=== PATIENT | female | born 1985 | race Caucasian/White ===

== ENCOUNTER → 2020-02-19 | Outpatient (CLI) | payer OTHER ==
[2020-02-19 17:59] LABS: BASO # 0.1 10^3/uL (0.0-0.2); BASO % 1.2 % (0.0-1.0); EOS # 0.3 10^3/uL (0.0-0.5); EOS % 4.4 % (0.0-3.0); HEMOGLOBIN 12.7 g/dl (12.0-15.5); LYMPH # 2.2 10^3/uL (1.5-5.0); LYMPH % 30.6 % (24.0-44.0); MEAN CORPUSCULAR HEMOGLOBIN 30.3 pg (27.0-33.0); MEAN CORPUSCULAR HGB CONC 32.6 g/dl (32.0-36.5); MEAN CORPUSCULAR VOLUME 93.1 fl (80.0-96.0); MONO # 0.4 10^3/uL (0.0-0.8); MONO % 5.9 % (0.0-5.0); NEUTROPHILS # 4.2 10^3/uL (1.5-8.5); NEUTROPHILS % 57.5 % (36.0-66.0); PLATELET COUNT, AUTOMATED 311 10^3/uL (150-450); RED BLOOD COUNT 4.19 10^6/uL (4.00-5.40); WHITE BLOOD COUNT 7.3 10^3/uL (4.0-10.0)
[2020-02-19 18:12] LABS: APPEARANCE, URINE CLEAR (CLEAR); BACTERIA, URINE AUTO NEGATIVE (NEGATIVE); BILIRUBIN, URINE AUTO NEGATIVE (NEGATIVE); BLOOD, URINE BLOOD NEGATIVE (NEGATIVE); COLOR, URINE COLORLESS (YELLOW); GLUCOSE, URINE (UA) AUTO NEGATIVE (NEGATIVE); KETONE, URINE AUTO NEGATIVE (NEGATIVE); LEUKOCYTE ESTERASE, URINE AUTO NEGATIVE (NEGATIVE); NITRITE, URINE AUTO NEGATIVE (NEGATIVE); PROTEIN, URINE AUTO NEGATIVE (NEGATIVE); RBC, URINE AUTO 1 /HPF (0-3); SPECIFIC GRAVITY URINE AUTO 1.001 (1.002-1.035); SQUAMOUS EPITHELIAL CELL UR AU 0 /HPF (0-6); UROBILINOGEN, URINE AUTO 0.2 mg/dL (0.0-2.0); WBC, URINE AUTO 0 /HPF (0-3)
[2020-02-19 18:29] LABS: BLOOD UREA NITROGEN 12 MG/DL (7-18); CALCIUM LEVEL 8.8 MG/DL (8.5-10.1); CARBON DIOXIDE LEVEL 27 MEQ/L (21-32); CHLORIDE LEVEL 107 MEQ/L (98-107); CREATININE FOR GFR 0.82 MG/DL (0.55-1.30); GLOMERULAR FILTRATION RATE > 60.0 (>60); GLUCOSE, FASTING 62 MG/DL (70-100); POTASSIUM SERUM 4.3 MEQ/L (3.5-5.1); SODIUM LEVEL 140 MEQ/L (136-145)
[2020-02-19 18:30] LABS: HEMOGLOBIN A1c 5.4 %
[2020-02-19 18:47] LABS: CREATININE, URINE < 13.0 MG/DL; CREATININE,RANDOM URINE < 13.0 MG/DL; MALB URINE SIEMENS < 5.0 MG/L; TOTAL PROTEIN,RANDOM URINE < 5.0 MG/DL (0.0-12.0)
== END ==
LOC: M LAB 16:24
PROVIDERS: ATTEND Internal Medicine Nephrology
DX: Z00.5 Encounter for examination of potential donor of organ and tissue (principal)

== ENCOUNTER → 2020-03-18 | Outpatient (REF) | payer OTHER | LOC: M SFHCLUC 15:52 | PROVIDERS: ATTEND Nurse Practitioner Family | DX: Z11.59 Encounter for screening for other viral diseases (principal) | CPT/HCPCS: 87081; U0003 ==

== ENCOUNTER → 2021-05-19 | Outpatient (CLI) | payer OTHER | LOC: M OUTALCOH 07:49 | PROVIDERS: ATTEND Psychiatry & Neurology Psychiatry | DX: Z03.89 Encounter for observation for other suspected diseases and conditions ruled out (principal) ==

== ENCOUNTER → 2021-10-04 | Outpatient (CLI) | payer OTHER ==
[2021-10-05 13:15] LABS: ESTRADIOL 573.8 PG/ML; PROGESTERONE 55.43 NG/ML
== END ==
LOC: M WUC 08:49
PROVIDERS: ATTEND Obstetrics & Gynecology Reproductive Endocrinology
DX: Z31.49 Encounter for other procreative investigation and testing (principal)

== ENCOUNTER → 2021-10-08 | Outpatient (CLI) | payer OTHER ==
[2021-10-08 12:21] LABS: PROGESTERONE 74.61 NG/ML
== END ==
LOC: M WUC 08:07
PROVIDERS: ATTEND Obstetrics & Gynecology Reproductive Endocrinology
DX: Z32.00 Encounter for pregnancy test, result unknown (principal)

== ENCOUNTER → 2021-10-11 | Outpatient (CLI) | payer OTHER ==
[2021-10-11 11:13] LABS: THYROID STIMULATING HORMONE 1.57 uIU/ML (0.358-3.740)
[2021-10-11 11:20] LABS: ESTRADIOL 1223.8 PG/ML
[2021-10-11 11:40] LABS: PROGESTERONE 109.89 NG/ML
== END ==
LOC: M WUC 08:31
PROVIDERS: ATTEND Obstetrics & Gynecology Reproductive Endocrinology
DX: Z32.01 Encounter for pregnancy test, result positive (principal)

== ENCOUNTER 2021-12-03 22:28 | Emergency (ER) | payer OTHER ==
[~2021-12-03] VITALS: Ht 157.5 cm; Wt 78.0 kg
[2021-12-04 00:14] LABS: BLOOD UREA NITROGEN 9 MG/DL (7-18); CALCIUM LEVEL 8.1 MG/DL (8.5-10.1); CARBON DIOXIDE LEVEL 22 MEQ/L (21-32); CHLORIDE LEVEL 109 MEQ/L (98-107); CREATININE FOR GFR 0.55 MG/DL (0.55-1.30); GLOMERULAR FILTRATION RATE > 60.0 (>60); GLUCOSE, FASTING 161 MG/DL (70-100); HCG, SERUM QUANTITATIVE 41862 MIU/ML; POTASSIUM SERUM 3.6 MEQ/L (3.5-5.1); SODIUM LEVEL 139 MEQ/L (136-145)
[2021-12-04 00:19] LABS: BASO # 0.1 10^3/uL (0.0-0.2); BASO % 0.5 % (0.0-1.0); EOS # 0.3 10^3/uL (0.0-0.5); EOS % 2.7 % (0.0-3.0); HEMATOCRIT 31.1 % (36.0-47.0); HEMOGLOBIN 10.4 g/dl (12.0-15.5); LYMPH # 1.6 10^3/uL (1.5-5.0); LYMPH % 17.1 % (24.0-44.0); MEAN CORPUSCULAR HEMOGLOBIN 30.5 pg (27.0-33.0); MEAN CORPUSCULAR HGB CONC 33.4 g/dl (32.0-36.5); MEAN CORPUSCULAR VOLUME 91.2 fl (80.0-96.0); MONO # 0.5 10^3/uL (0.0-0.8); MONO % 5.8 % (2.0-8.0); NEUTROPHILS # 6.7 10^3/uL (1.5-8.5); NEUTROPHILS % 73.5 % (36.0-66.0); PLATELET COUNT, AUTOMATED 238 10^3/uL (150-450); RED BLOOD COUNT 3.41 10^6/uL (4.00-5.40); WHITE BLOOD COUNT 9.1 10^3/uL (4.0-10.0)
[2021-12-04 01:15] VITALS: BP 115/61
== END 2021-12-04 01:38 | disposition home or self-care (01) ==
LOC: M ED 22:28 → EDBD 22:28 → M ED 12-04 01:38
DX: O20.8 Other hemorrhage in early pregnancy (principal); Z3A.12 12 weeks gestation of pregnancy

== ENCOUNTER → 2021-12-09 | Outpatient (REF) | payer OTHER ==
[2021-12-09 17:27] LABS: HEMOGLOBIN 10.1 g/dl (12.0-15.5); MEAN CORPUSCULAR HEMOGLOBIN 29.8 pg (27.0-33.0); MEAN CORPUSCULAR HGB CONC 32.6 g/dl (32.0-36.5); MEAN CORPUSCULAR VOLUME 91.4 fl (80.0-96.0); PLATELET COUNT, AUTOMATED 302 10^3/uL (150-450); RED BLOOD COUNT 3.39 10^6/uL (4.00-5.40); WHITE BLOOD COUNT 9.8 10^3/uL (4.0-10.0)
[2021-12-09 18:33] LABS: HCG, SERUM QUANTITATIVE 56303 MIU/ML; HEPATITIS B SURFACE ANTIGEN NEGATIVE (NEGATIVE); HEPATITIS C VIRUS ABY INDEX 0.1 INDEX (<0.8); HIV 1&2 SCREEN CENTAUR NEGATIVE (NEGATIVE)
== END ==
LOC: M LAB REF 16:26
PROVIDERS: ATTEND Obstetrics & Gynecology
DX: O36.80X0 Pregnancy with inconclusive fetal viability, not applicable or unspecified (principal); Z32.01 Encounter for pregnancy test, result positive

== ENCOUNTER → 2022-02-21 | Outpatient (CLI) | payer OTHER | LOC: M WUC 13:15 | PROVIDERS: ATTEND Obstetrics & Gynecology Reproductive Endocrinology | DX: N96 Recurrent pregnancy loss (principal) ==

== ENCOUNTER → 2022-04-29 | Outpatient (CLI) | payer OTHER ==
[2022-04-29 14:09] LABS: PROGESTERONE 78.22 NG/ML
== END ==
LOC: M WUC 08:13
PROVIDERS: ATTEND Obstetrics & Gynecology Reproductive Endocrinology
DX: Z32.00 Encounter for pregnancy test, result unknown (principal)

== ENCOUNTER → 2022-05-02 | Outpatient (CLI) | payer OTHER | LOC: M WUC 08:10 | PROVIDERS: ATTEND Obstetrics & Gynecology Reproductive Endocrinology | DX: N88.8 Other specified noninflammatory disorders of cervix uteri (principal) ==

== ENCOUNTER → 2022-07-05 | Outpatient (CLI) | payer OTHER | LOC: M WHC 12:47 | PROVIDERS: ATTEND Advanced Practice Midwife | DX: O20.0 Threatened abortion (principal) ==

== ENCOUNTER → 2022-07-11 | Outpatient (CLI) | payer OTHER ==
[2022-07-11 16:41] LABS: MEAN CORPUSCULAR HEMOGLOBIN 28.8 pg (27.0-33.0); MEAN CORPUSCULAR HGB CONC 32.4 g/dl (32.0-36.5); PLATELET COUNT, AUTOMATED 253 10^3/uL (150-450); RED BLOOD COUNT 3.82 10^6/uL (4.00-5.40); WHITE BLOOD COUNT 12.1 10^3/uL (4.0-10.0)
[2022-07-11 17:14] LABS: HIV 1&2 SCREEN CENTAUR NEGATIVE (NEGATIVE)
[2022-07-11 17:22] LABS: HEPATITIS C VIRUS ABY INDEX 0.1 INDEX (<0.8)
[2022-07-11 18:34] LABS: GC DNA AMPLIFICATION NEGATIVE (NEGATIVE)
== END ==
LOC: M WUC 13:04
PROVIDERS: ATTEND Specialist
DX: Z34.81 Encounter for supervision of other normal pregnancy, first trimester (principal)

== ENCOUNTER → 2022-08-12 | Outpatient (CLI) | payer OTHER | LOC: M WHC 08:33 | PROVIDERS: ATTEND Advanced Practice Midwife | DX: O30.049 Twin pregnancy, dichorionic/diamniotic, unspecified trimester (principal); Z36.2 Encounter for other antenatal screening follow-up; Z3A.19 19 weeks gestation of pregnancy ==

== ENCOUNTER → 2022-09-23 | Outpatient (CLI) | payer OTHER ==
[2022-09-23 08:18] LABS: HEMATOCRIT 34.8 % (36.0-47.0); HEMOGLOBIN 11.2 g/dl (12.0-15.5); MEAN CORPUSCULAR HEMOGLOBIN 30.1 pg (27.0-33.0); MEAN CORPUSCULAR HGB CONC 32.2 g/dl (32.0-36.5); MEAN CORPUSCULAR VOLUME 93.5 fl (80.0-96.0); PLATELET COUNT, AUTOMATED 214 10^3/uL (150-450); RED BLOOD COUNT 3.72 10^6/uL (4.00-5.40); WHITE BLOOD COUNT 8.9 10^3/uL (4.0-10.0)
== END ==
LOC: M LAB 06:44
PROVIDERS: ATTEND Advanced Practice Midwife
DX: O30.042 Twin pregnancy, dichorionic/diamniotic, second trimester (principal); Z3A.00 Weeks of gestation of pregnancy not specified

== ENCOUNTER → 2022-10-07 | Outpatient (CLI) | payer OTHER | LOC: M WHC 14:54 | PROVIDERS: ATTEND Advanced Practice Midwife | DX: O30.042 Twin pregnancy, dichorionic/diamniotic, second trimester (principal) ==

== ENCOUNTER → 2022-10-18 | Outpatient (CLI) | payer OTHER | LOC: M LAB 09:31 | PROVIDERS: ATTEND Advanced Practice Midwife | DX: O99.810 Abnormal glucose complicating pregnancy (principal) ==

== ENCOUNTER → 2022-10-31 | Outpatient (CLI) | payer OTHER | LOC: M WHC 10:11 | PROVIDERS: ATTEND Specialist | DX: O30.043 Twin pregnancy, dichorionic/diamniotic, third trimester (principal) ==

== ENCOUNTER 2022-11-03 12:41 | Outpatient (CLI) | payer OTHER ==
[~2022-11-03] VITALS: Ht 160 cm; Wt 95.9 kg
[2022-11-03 13:07] VITALS: BP 127/66
[2022-11-03] MEDS ORDERED: ACET325C5 PO (13:19)
[2022-11-03] MEDS ORDERED: HOME MED LIST COMPLETE! XX SCH (13:20)
[2022-11-03] MEDS ORDERED: BETAMETHASONE SOLUSPAN 6MG/ML 5ML VIAL IM ONE (13:30)
[2022-11-03 14:01] VITALS: BP 139/74
[2022-11-04] MEDS ORDERED: PRENTAB9 PO (14:12)
[2022-11-04] MEDS ORDERED: OMEP-173 PO (14:12)
[2022-11-04] MEDS ORDERED: SALI0.6530 NARES (14:12)
== END 2022-11-03 14:06 | disposition home or self-care (01) ==
LOC: M LDO 12:41
PROVIDERS: ATTEND Obstetrics & Gynecology
DX: O40.3XX2 Polyhydramnios, third trimester, fetus 2 (principal); O30.043 Twin pregnancy, dichorionic/diamniotic, third trimester; O34.211 Maternal care for low transverse scar from previous cesarean delivery; Z3A.30 30 weeks gestation of pregnancy
CPT/HCPCS: 59025; 96372; G0463; J0702

== ENCOUNTER 2022-11-04 13:43 | Outpatient (CLI) | payer OTHER ==
[~2022-11-04] VITALS: Ht 157.5 cm; Wt 95.7 kg
[~2022-11-04 13:43] MED LIST: ACET325C5 PO
[2022-11-04] MEDS ORDERED: PRENTAB9 PO (14:12)
[2022-11-04] MEDS ORDERED: SALI0.6530 NARES (14:12)
[2022-11-04] MEDS ORDERED: OMEP-173 PO (14:12)
[2022-11-04 14:15] VITALS: BP 136/68
[2022-11-04] MEDS ORDERED: HOME MED LIST COMPLETE! XX SCH (14:15)
[2022-11-04] MEDS ORDERED: BETAMETHASONE SOLUSPAN 6MG/ML 5ML VIAL IM ONE (14:20)
== END 2022-11-04 14:50 | disposition home or self-care (01) ==
LOC: M LDO 13:43
PROVIDERS: ATTEND Advanced Practice Midwife
DX: O40.3XX2 Polyhydramnios, third trimester, fetus 2 (principal); O30.043 Twin pregnancy, dichorionic/diamniotic, third trimester; O34.211 Maternal care for low transverse scar from previous cesarean delivery; Z3A.30 30 weeks gestation of pregnancy
CPT/HCPCS: 96372; J0702

== ENCOUNTER → 2022-11-22 | Outpatient (CLI) | payer OTHER ==
[~2022-11-22] MED LIST changes: +OMEP-173 PO; +PRENTAB9 PO; +SALI0.6530 NARES
== END ==
LOC: M RAD 09:01
PROVIDERS: ATTEND Obstetrics & Gynecology
DX: Z36.4 Encounter for antenatal screening for fetal growth retardation (principal); O30.043 Twin pregnancy, dichorionic/diamniotic, third trimester; Z3A.33 33 weeks gestation of pregnancy

== ENCOUNTER → 2022-11-25 | Outpatient (CLI) | payer OTHER | LOC: M WHC 12:29 | PROVIDERS: ATTEND Obstetrics & Gynecology | DX: O09.293 Supervision of pregnancy with other poor reproductive or obstetric history, third trimester (principal) ==

== ENCOUNTER 2022-12-02 04:49 | Inpatient (IN) | payer OTHER ==
[~2022-12-02] VITALS: Ht 157.5 cm; Wt 92.4 kg
[2022-12-02] MEDS ORDERED: ceFAZolin SOD 2 GM in IV 1 EA IV ONE (05:05)
[2022-12-02] MEDS ORDERED: LR 800 ML IV ONE (05:05)
[2022-12-02] MEDS ORDERED: BICITRA 30ML SOLN UDC PO ONE (05:05)
[2022-12-02] MEDS ORDERED: LR 1,000 ML IV SCH (05:05)
[2022-12-02 05:12] VITALS: BP 138/85
[2022-12-02 06:06] LABS: HEMATOCRIT 39.5 % (36.0-47.0); MEAN CORPUSCULAR HEMOGLOBIN 30.4 pg (27.0-33.0); MEAN CORPUSCULAR HGB CONC 32.9 g/dl (32.0-36.5); MEAN CORPUSCULAR VOLUME 92.5 fl (80.0-96.0); PLATELET COUNT, AUTOMATED 173 10^3/uL (150-450); RED BLOOD COUNT 4.27 10^6/uL (4.00-5.40)
[2022-12-02] MEDS ORDERED: HOME MED LIST COMPLETE! XX SCH (06:30)
[2022-12-02] MEDS ORDERED: AZITHROMYCIN INJ 500 MG, VIAL MATE ADAPTER 1 EACH in NS 250 ML IV ONE (07:05)
[2022-12-02] MEDS ORDERED: ALBUTEROL SULFATE 2.5MG/0.5ML INH NEB SOLN NEB ONE (07:50)
[2022-12-02] MEDS ORDERED: METOCLOPRAMIDE INJ 10MG/2ML VIAL As Ordered ONE (08:34)
[2022-12-02] MEDS ORDERED: ACETAMINOPHEN 1000MG 100ML IV BAG As Ordered ONE (08:34)
[2022-12-02] MEDS ORDERED: ONDANSETRON 4MG 2ML VIAL As Ordered ONE (08:34)
[2022-12-02] MEDS ORDERED: PHENYLephrine 500MCG 5ML (100MCG/ML) SYRINGE As Ordered ONE (08:34)
[2022-12-02] MEDS ORDERED: KETOROLAC 60MG 2ML VIAL As Ordered ONE (08:34)
[2022-12-02] MEDS ORDERED: OXYTOCIN 30UNITS IN 0.9% NaCl 500ML IV BAG As Ordered ONE ×2 (08:34→09:13)
[2022-12-02] MEDS ORDERED: MORPHINE PRES-FREE INJ 10 MG/10 ML VIAL As Ordered ONE (08:35)
[2022-12-02] MEDS ORDERED: diphenhydrAMINE 50MG/ML VIAL IV PRN ×2 (08:55→09:20)
[2022-12-02] MEDS ORDERED: SLF 3 ML SYR IV SCH (08:55)
[2022-12-02] MEDS ORDERED: MORPHINE 2 MG/ML 1ML VIAL IV PRN ×2 (08:55→09:15)
[2022-12-02] MEDS ORDERED: MEPERIDINE 25 MG/ML 1ML VIAL IV PRN ×2 (08:55→09:15)
[2022-12-02] MEDS ORDERED: oxyCODONE 5MG TAB PO PRN ×2 (08:55→09:15)
[2022-12-02] MEDS ORDERED: **NOTE PATIENT COMMENT** MISC XX SCH ×2 (08:55→09:20)
[2022-12-02] MEDS ORDERED: fentaNYL 100 MCG/2 ML INJECTION IV PRN ×2 (08:55→09:15)
[2022-12-02] MEDS ORDERED: METOCLOPRAMIDE INJ 10MG/2ML VIAL IV PRN ×2 (08:55→09:20)
[2022-12-02] MEDS ORDERED: ONDANSETRON 4MG 2ML VIAL IV PRN ×2 (08:55→09:15)
[2022-12-02] MEDS ORDERED: NALOXONE INJ 0.4MG/1ML VIAL IV PRN ×4 (08:55→09:20)
[2022-12-02] MEDS: PRENATAL VITAMINS CHEWABLE TABLET PO SCH (09:00)
[2022-12-02] MEDS ORDERED: OXYTOCIN DRIP 30 UNITS in IV 1 EA IV SCH (09:05)
[2022-12-02] MEDS: LR 1,000 ML IV SCH ×2 (09:05→17:05)
[2022-12-02] MEDS ORDERED: PERCOCET 5MG/325MG TAB PO PRN (09:05)
[2022-12-02] MEDS ORDERED: RHOGAM 300MCG (1500IU) INJ IM SCH (09:05)
[2022-12-02] MEDS ORDERED: SIMETHICONE 80MG CHEW TAB PO PRN (09:05)
[2022-12-02 09:06] LABS: CORD GAS ABE V -4.1; CORD GAS HCO3 V 22.7 MMOL/L; CORD GAS O2 SAT V 80.1 %; CORD GAS PCO2 V 47.9 mmHg; CORD GAS PH V 7.294 UNITS; CORD GAS SBC V 20.6 MMOL/L; CORD GAS TCO2 V 24.2 MMOL/L
[2022-12-02 09:06] LABS: CORD GAS ABE A -6.1; CORD GAS HCO3 A 21.2 MMOL/L; CORD GAS O2 SAT A 99.2 %; CORD GAS PCO2 A 48.2 mmHg; CORD GAS PH A 7.261 UNITS; CORD GAS PO2 A 102.3 mmHg; CORD GAS SBC A 19.6 MMOL/L; CORD GAS TCO2 A 22.7 MMOL/L
[2022-12-02] MEDS ORDERED: OXYC1TAB23 PO (09:07)
[2022-12-02] MEDS ORDERED: IBUP80TA PO (09:08)
[2022-12-02 09:09] LABS: CORD GAS ABE A -8.5; CORD GAS HCO3 A 20.7 MMOL/L; CORD GAS O2 SAT A 91.5 %; CORD GAS PCO2 A 56.9 mmHg; CORD GAS PH A 7.178 UNITS; CORD GAS PO2 A 54.8 mmHg; CORD GAS SBC A 17.6 MMOL/L; CORD GAS TCO2 A 22.4 MMOL/L
[2022-12-02 09:10] LABS: CORD GAS ABE V -3.2; CORD GAS PCO2 V 56.4 mmHg; CORD GAS PH V 7.264 UNITS; CORD GAS PO2 V 35.4 mmHg; CORD GAS SBC V 21.4 MMOL/L; CORD GAS TCO2 V 26.7 MMOL/L
[2022-12-02] MEDS: SLF 3 ML SYR IV SCH ×2 (09:15→17:15)
[2022-12-02 10:49] VITALS: BP 122/65
[2022-12-02 11:20] VITALS: BP 120/56
[2022-12-02 12:20] VITALS: BP 122/70
[2022-12-02 13:20] VITALS: BP 111/57
[2022-12-02] MEDS: KETOROLAC 30 MG/ML 1ML VIAL IV SCH ×2 (15:22→20:57)
[2022-12-02 18:00] VITALS: BP 124/71
[2022-12-03] MEDS: SLF 3 ML SYR IV SCH (00:42)
[2022-12-03] MEDS: PERCOCET 5MG/325MG TAB PO PRN ×3 (00:54→17:26)
[2022-12-03 02:27] VITALS: BP 129/58
[2022-12-03] MEDS: KETOROLAC 30 MG/ML 1ML VIAL IV SCH (03:01)
[2022-12-03 06:00] VITALS: BP 109/57
[2022-12-03 09:14] LABS: HEMATOCRIT 32.4 % (36.0-47.0); MEAN CORPUSCULAR HEMOGLOBIN 30.6 pg (27.0-33.0); MEAN CORPUSCULAR VOLUME 92.6 fl (80.0-96.0); PLATELET COUNT, AUTOMATED 164 10^3/uL (150-450)
[2022-12-03 09:16] LABS: HEMOGLOBIN 10.7 g/dl (12.0-15.5)
[2022-12-03] MEDS: PRENATAL VITAMINS CHEWABLE TABLET PO SCH (09:59)
[2022-12-03 10:00] VITALS: BP_SYST 102; BP_SYST 120; BP_DIAS 54; BP_DIAS 69
[2022-12-03] MEDS: IBUPROFEN 800 MG TAB PO SCH ×2 (10:02→18:44)
[2022-12-03 15:00] VITALS: BP 128/68
[2022-12-03 18:00] VITALS: BP 115/59
[2022-12-03] MEDS: DOCUSATE SODIUM 100MG CAPSULE PO PRN (20:05)
[2022-12-03 21:57] VITALS: BP 122/61
[2022-12-04] MEDS: PERCOCET 5MG/325MG TAB PO PRN ×3 (00:48→17:22)
[2022-12-04 02:00] VITALS: BP 119/56
[2022-12-04] MEDS: IBUPROFEN 800 MG TAB PO SCH ×3 (02:50→19:28)
[2022-12-04 05:47] VITALS: BP 114/61
[2022-12-04] MEDS: PRENATAL VITAMINS CHEWABLE TABLET PO SCH (08:51)
[2022-12-04] MEDS ORDERED: MEASLES,MUMPS,RUBELLA VACCINE INJ (MMR-II) SC.IMMUN ONE (09:00)
[2022-12-04 18:00] VITALS: BP 140/78
[2022-12-04] MEDS: DOCUSATE SODIUM 100MG CAPSULE PO PRN (21:48)
[2022-12-05] MEDS: IBUPROFEN 800 MG TAB PO SCH ×2 (02:56→11:00)
[2022-12-05 06:00] VITALS: BP 135/79
[2022-12-05] MEDS: PERCOCET 5MG/325MG TAB PO PRN (08:17)
[2022-12-05] MEDS: PRENATAL VITAMINS CHEWABLE TABLET PO SCH (09:00)
[2022-12-05] MEDS ORDERED: PRENCHW PO (12:40)
[2022-12-05] MEDS ORDERED: COLA100C5 PO (12:40)
== END 2022-12-05 13:50 | disposition home or self-care (01) | DRG 788 ==
LOC: M LDI 04:49 → M OBS 10:47
PROVIDERS: ADMIT Specialist; ATTEND Specialist
PROC: 10D00Z1 Extraction of Products of Conception, Low, Open Approach (ICD-10-PCS; principal; 2022-12-02 07:30)
DX: O40.3XX2 Polyhydramnios, third trimester, fetus 2 (principal); O34.211 Maternal care for low transverse scar from previous cesarean delivery; Z3A.35 35 weeks gestation of pregnancy; O30.043 Twin pregnancy, dichorionic/diamniotic, third trimester; O32.2XX2 Maternal care for transverse and oblique lie, fetus 2; Z37.2 Twins, both liveborn